=== PATIENT | male | born 1935 | race Caucasian/White ===

== ENCOUNTER 2020-12-26 16:20 | Emergency (ER) | payer OTHER, BC ==
[~2020-12-26] VITALS: Ht 175.3 cm; Wt 74.8 kg
--- NOTE | ~2020-12-26 | EMS ---
[address] [address] EMS Patient Care Report Name: HARRISON RAMOS [id number] Admission: 12/26/20 Attend Phys: Discharge: Date of : 37 Report #: [id number] THIS REPORT FOR: //name// Report Transmitted: 12/26/2020 16:27 EMS Care Summary [facility] MED-ACT Incident [id number] @ 12/26/2020 15:21 Incident Location [address] [place] [address] [place] [address] Patient HARRISON RAMOS Male, 85 Years 1935 Patient Address [address] [place] [address] Patient History Cardiac - Stent,Hypothyroidism, Patient Allergies Bee sting allergy, Patient Medications Epinephrine Auto-injector, Synthroid, Chief Complaint Wasp Sting Disposition Transported No Lights/[place] Dispatch Reason Heat/Cold Exposure Transported To [facility] Narrative Medic 1149 was dispatched for a C3 heat emergency call. Upon arrival patient was sitting in a chair inside the dinning room being assessed by [place] [facility]. [facility] reported that the patient was found outside by his after being stung by a wasp. The patient was able to get himself inside and self [address] [address] EMS Patient Care Report Name: HARRISON RAMOS Room #: REG [facility]#: [id number] Admission: 12/26/20 Attend Phys: Discharge: Date of : 37 Report #: [id number] administer an 0.3mg Epi auto injector into his right leg. The patient reports his total time outside was 10-15 minutes. LFD reported the patient was pale and diaphoretic upon their arrival and administered oxygen via BVM at 15lpm due to his oxygen levels being at 84% room air. Vitals were obtained, assessment was performed and it was discovered that the patient was stung in the left forearm where there was redness with a little swelling. No obvious stinger was observed. It appeared there could have been a secondary sting on the right forearm in the same area where it was red with swelling. The patient was adamant about not wanting to being transported but with his history of being stung by a wasp 2 years ago where he suffered respiratory arrest, he was convinced with transport after the son arrived and could stay at the house to care for the patients . Vitals were obtained on scene including a non-significant 12 lead. An albuterol breathing treatment was administered on scene and improved the patients wheezing and oxygen levels. The patient was assisted to the cot where he was secured with straps, and moved to and secured in unit where a IV was obtained. The redness and swelling had improved on his forearms and the patient denied any chest pain, difficulty breathing, and had no signs of rashes anywhere else on his body. A radio report was given prior to arriving, and once arrived, patient was moved to room 1, report was given to staff, and transfer of care was made with patient in stable condition. Initial Vitals @PTAP: 63,BP: 79/48,SpO2: 73, @PTAP: 63,BP: 110/58,CO: 0,SpO2: 94, @PTAP: 64,SpO2: 71, @PTAP: 59,BP: 86/45,SpO2: 83, @PTAP: 60,R: 18,BP: 114/66,SpO2: 96, @16:04P: 56,R: 16,BP: 145/71,Pain: 0/10,SpO2: 97, @16:13P: 55,R: 16,BP: 127/63,GCS: 15,SpO2: 97,Revised Trauma: 12, @15:41P: 62,R: 18,GCS: 15,Temp: 98.5F,CO: 0,SpO2: 92, Assessments @15:35MENTAL:Person Oriented,Time Oriented,Place Oriented,Event Oriented,SKIN:Diaphoresis,Pale,HEENT:Head/Face: No Abnormalities,Neck/Airway: No Abnormalities,LUNG SOUNDS:General: No Abnormalities,ABDOMEN:General: No Abnormalities,PELVIS//GI:No Abnormalities,EXTREMITIES:Left Arm: Other,Right Arm: Other,Left Leg: No Abnormalities,Right Leg: No Abnormalities,PULSE:NEURO:No Abnormalities, Impression Anaphylaxis Procedures @15:4112-Lead ECGResponse: UnchangedSucceeded@16:04Saline Lock 0cc (20 ga) Site: Antecubital-RightResponse: UnchangedFailed@16:06Saline Lock 6cc (20 ga) Site: Femoral-Left IVResponse: UnchangedSucceeded [address] [address] EMS Patient Care Report Name: HARRISON RAMOS Room #: REG [facility].#: [id number] Admission: 12/26/20 Attend Phys: Discharge: Date of : 37 Report #: [id number] Timeline DIE MAKER STAMPING,BP: 79/48 M,PULSE: 63,RR: R,SPO2: 73 Ox,ETCO2: ,BG: ,PAIN: ,GCS: , DIE MAKER STAMPING,BP: 110/58 M,PULSE: 63,RR: R,SPO2: 94 Ox,ETCO2: ,BG: ,PAIN: ,GCS: , DIE MAKER STAMPING,BP: / M,PULSE: 64,RR: R,SPO2: 71 Ox,ETCO2: ,BG: ,PAIN: ,GCS: , DIE MAKER STAMPING,BP: 86/45 M,PULSE: 59,RR: R,SPO2: 83 Ox,ETCO2: ,BG: ,PAIN: ,GCS: , DIE MAKER STAMPING,BP: 114/66 M,PULSE: 60,RR: 18 R,SPO2: 96 Ox,ETCO2: ,BG: ,PAIN: ,GCS: , 15:20,Call Received 15:20,Psap Call 15:21,Dispatched 15:22,En Route 15:33,On Scene 15:35,At Patient 15:41,12-Lead ECG,Response: UnchangedSucceeded, 15:41,BP: / M,PULSE: 62,RR: 18 R,SPO2: 92 Ox,ETCO2: ,BG: ,PAIN: ,GCS: 15, 16:04,Saline Lock 0cc 20 ga Site: Antecubital-Right,Response: UnchangedFailed, 16:04,BP: 145/71 M,PULSE: 56,RR: 16 R,SPO2: 97 Ox,ETCO2: ,BG: ,PAIN: 0,GCS: , 16:06,Saline Lock 6cc 20 ga Site: Femoral-Left IV,Response: UnchangedSucceeded, 16:07,Depart Scene 16:13,BP: 127/63 M,PULSE: 55,RR: 16 R,SPO2: 97 Ox,ETCO2: ,BG: ,PAIN: ,GCS: 15, 16:26,At Destination 16:34,Call Closed Disclaimer v1.1 Copyright 2020 [employer] This EMS Care Summary contains data elements from the applicable legal record (which may be displayed differently). It is designed to provide pertinent information for the following purposes: continuity of care, clinical quality, and state data reporting. The complete legal record is available to ED staff and administrators of the receiving hospital in [employer]'s Patient Tracker. All data is provided "as is."
[~2020-12-26 16:20] MED LIST: ADULT LOW DOSE81 MG PO; ALTACE10 MG PO; B-12500 MCG PO; CEFUROXIME500 MG PO; COLACE100 MG PO; ELIQUIS5 MG PO; EPIPEN0.3 MG/0.1 INJECTION; FISH OIL 1,001000 M2 PO; FOLIC ACID 1 MG1 MG PO; IRON325 PO; LIDOPATCH1 EACH TRANSDERM; NORVASC5 M1 PO; NORVASC5 MG PO; PEPCID20 MG PO; PREDNISONE 20 M20 M1 PO; SORINE 80 MG TA80 M1 PO; ZOCOR20 MG PO
[2020-12-26 17:23] VITALS: BP 128/56
[2020-12-26] MEDS ORDERED: EPIPEN 2-P0.3 MG/0.3 IM (18:10)
[2020-12-26] MEDS ORDERED: PREDNISONE 20 M20 M1 PO (18:10)
== END 2020-12-26 18:11 | disposition home or self-care (01) ==
LOC: ER 16:20
DX: T63.461A Toxic effect of venom of wasps, accidental (unintentional), initial encounter (principal); T78.2XXA Anaphylactic shock, unspecified, initial encounter; I10 Essential (primary) hypertension; Z98.890 Other specified postprocedural states; Z79.82 Long term (current) use of aspirin; Z79.899 Other long term (current) drug therapy; Z91.030 Bee allergy status; X58.XXXA Exposure to other specified factors, initial encounter